=== PATIENT | female | born 1975 | race African-American/Black ===

== ENCOUNTER 2025-05-17 10:38 | Outpatient (CLI) | payer OTHER, SELFPAY ==
--- NOTE | 2025-05-17 11:40 | ECG_ITS ---
Test Date: 2025-05-17 11:57:23 Measurements Intervals [place] Rate: 89 P: 65 MI: 185 QRS: 46 QRSD: 72 T: 31 QT: 348 QTc: 425 Interpretive Statements SINUS RHYTHM NONSPECIFIC T-WAVE ABNORMALITY- ANT/INF LEADS BASELINE ARTIFACT- I, II, III, AVR, AVL, AVF BORDERLINE ECG No previous ECG available for comparison Electronically Signed On 05-17-2025 12:07:18 [employer]PER[employer] by Napoleon Sims D.O.
[2025-05-17 12:13] LABS: Hematocrit 31.9 % (37.0-47.0); Hemoglobin 9.5 g/dL (12.0-15.0); Immature Granulocyte Percent A 0.2 % (0-0.5); Lymphocytes Absolute Auto 1.97 K/mm3 (0.9-3.2); Mean Corpuscular HGB Conc 29.8 g/dl (32-36); Mean Corpuscular Hemoglobin 22.2 pg (26-34); Mean Corpuscular Volume 74.7 fl (80-100); Nucleated Red Blood Cells Absolute Auto 0.000 K/mm3 (0.0-0.012); Nucleated Red Blood Cells Perc 0.0 % (0.0-0.2); Platelet Count Result 436 k/mm3 (150-375); Red Blood Count 4.27 M/mm3 (4.2-5.4); White Blood Count 8.4 K/mm3 (4.5-10.0)
[2025-05-17 12:24] LABS: Hemoglobin A1C 5.3 % (<5.7)
--- OUTSIDE RECORDS SUMMARY | 2025-05-17 12:33 | XMS_ITS | Clinical Summary ---
Author Organization [facility] Address [address] [place] [address] Care Team Providers Care Application Designer Name Role Phone Kari Sarmiento MD Primary Care Provider [phone] Allergies No known active allergies Medications losartan (COZAAR) 25 MG tabletIndications: Hypertension, essential Take 1 tablet (25 mg total) by mouth daily. 30 tablet 5 5 Active DULoxetine (CYMBALTA) 60 MG capsuleIndications :Mixed anxiety and depressive disorder Take 1 capsule (60 mg total) by mouth daily. 30 capsule 5 5 Active naproxen (NAPROSYN) 500 MG tabletIndications: Left hip pain TAKE 1 TABLET(500 MG) BY MOUTH TWICE DAILY WITH MEALS 60 tablet 5 Active HYDROcodone-acetam inophen (NORCO) 5-325 MG tabletIndications: Acute Pain < 3 Day Supply Take 1 tablet by mouth every 6 (six) hours as needed. Indications : Acute Pain < 3 Day Supply 5 tablet 5 Active cyclobenzaprine (FLEXERIL) 10 MG tabletIndications: Primary osteoarthritis of left hip Take 1 tablet (10 mg total) by mouth 2 (two) times daily as needed for Muscle Spasms. 30 tablet 5 Active cyclobenzaprine (FLEXERIL) 10 MG tabletIndications: Primary osteoarthritis of left hip Take 1 tablet (10 mg total) by mouth 2 (two) times daily as needed for Muscle Spasms. 30 tablet 5 05/07/20 25 Discontin ued(Reord er) Active Problems Problem Noted Date Diagnosed Date Pre-op evaluation 05/07/2025 Overview (05/07/2025): - This appointment is an evaluation of risk and not a clearance for surgery. - There is no evidence of active cardiac conditions including unstable angina, history of severe valvular disease, evidence of decompensated heart failure or significant arrhythmias to indicate need for further cardiac evaluation/treatment at this time. - Based on the patient s history, current medications, and the nature of planned surgery, the following labs and tests are ordered: - none - Based on the most recent clinical practice guidelines for perioperative evaluation, the following are recommended regarding the patient s medications: - Continue taking statin. - Continue taking Beta Blockers if already well tolerated. - Continue taking ACEi if well tolerated, but hold on day of surgery. - Defer to cardiology for guidance on the use of antiplatelet agents for CAD and anti-coagulants for dysrhythmia. - Smoking cessation is recommended 30 days prior to operation for maximal benefit. - The patient is medically optimized for surgery. Leg length discrepancy 02/21/2025 Overview (02/21/2025): - reports left leg is 1/2 inch shorter than the right - was following with [facility] Dr. Fernandez Mixed anxiety and depressive disorder 02/12/2025 Overview (03/16/2025): - PHQ9 = 03/16/2025 9:36 AM PHQ-9 Score Patient Health Questionnaire-9 Score 7 , GAD7 = 03/16/2025 9:37 AM [facility] AMB GAD7 SCORE Total MARIA DOLORES Score 14 - discussed results of PHQ-9/MARIA DOLORES-7 with pt, pt denies SI/HI - pt does not have a history of psychiatric hospitalization - current medications: cymbalta 30 - previous medications: effexor - pt feels current dose of medication(s) is partially effective - pt is not currently seeing a counselor/therapist - encouraged pt to start seeing counseling/therapy - RTC 1 month(s) - increase to cymbalta 60 Primary osteoarthritis of left hip 11/18/2024 Overview (05/07/2025): - previously establish with Dr. Fernandez with [facility], was scheduled to have a hip replacement 02/15 but pt's insurance changed and was no longer in network with [facility] - pt scheduled for L THR with [facility] on 05/31/25 - will give flexeril for spasms today Primary osteoarthritis of right knee 07/24/2021 Overview (02/12/2025): Added automatically from request for surgery [id number] Hypertension, essential 10/27/2020 Overview (03/16/2025): - BP goal: less than 140/90 - BP controlled: Yes - Labs: Due - Pt does not use tobacco products, encouraged cessation if using tobacco products - Counseled regarding importance of lifestyle modification: healthy diet & regular exercise 30mins 3-5x weekly - RTC 3 month(s) - continue losartan 25 Resolved Problems Problem Noted Date Diagnosed Date Resolved Date Status post total right knee replacement 09/21/2021 02/12/2025 S/P endometrial ablation 07/27/2020 Encounters Date Type Department Care Team Description 05/07/2025 10:20 AM INSTRUCTIONAL SUPPORT ASSISTANT Office Visit [address] [address] Kari Sarmiento MD Surgical Clearance (Pt will behaving surgery on left hip, 05/31/[address] Kwok in [place], [place]) 05/07/2025 Travel 04/27/2025 Scan [facility] INFO SRVCS Scanned, [facility] 04/07/[address] [address] Kari Sarmiento MD Pain Hip/ Limb 03/27/2025 8:12 AM CDT - 03/27/2025 8:45 AM CDT Emergency [facility] [place] [address] Kieran Starr PA-C Hip Pain (Left ) Discharge Disposition: Home or Self Care (Routine Discharge) 03/27/2025 Travel 03/16/2025 9:20 AM CDT Office Visit [address] [address] Kari Sarmiento MD Hypertension (Pt arrives today for one month f/u. ); Depression 03/16/2025 9:10 AM CDT Laboratory Only [facility] [id number] [place] [address] Kari Sarmiento MD 03/16/2025 Scan [facility] INFO SRVCS Scanned, [facility] 03/16/2025 Travel 02/26/2025 8:35 AM CDT - 02/26/2025 9:47 AM CDT Emergency [facility] [place] [address] Luis Santillan MD Shanle, Kaitlyn E PA Hip Pain Discharge Disposition: Home or Self Care (Routine Discharge) 02/26/2025 Travel 02/25/2025 Telephone [facility] [address] [place] [address] Jose Klein MD Appointment Request from Last 3 Months Immunizations Immunization Administration Dates Next Due Dtp (Generic) 04/07/1982, 8,1974,1974,1974 Influenza Adult (Generic) 02/14/2023,01/29/2022 MMR (MMRII) 11/01/1976 Polio Opv (Generic) 04/07/1982, 8,1974,1974,1974 Tdap (Generic) 08/29/2023 Social History Tobacco Use Types Packs/Day Years Used Date Smoking Tobacco: Never Smokeless Tobacco: Never Tobacco Cessation:Counseling Given: No Alcohol Use Standard Drinks/Week Comments Never 0 (1 standard drink = 0.6 oz pur e alcohol) PHQ-2 Answer Date Recorded Patient Health Questionnaire-2 Score 0 05/07/2025 Comments No Sex and Gender Information Value Date Recorded Sex Assigned at Female 01/08/2025 8:05 AM CDT Legal Sex Female 8:03 AM CDT Gender Identity Female 05/07/2025 10:20 AM INSTRUCTIONAL SUPPORT ASSISTANT Sexual Orientation Not on file Last Filed Vital Signs Vital Sign Reading Time Taken Comments Blood Pressure 130/85 05/07/2025 10:20 AM INSTRUCTIONAL SUPPORT ASSISTANT Pulse 81 05/07/2025 10:20 AM INSTRUCTIONAL SUPPORT ASSISTANT Temperature 37 C (98.6 F) 05/07/2025 10:20 AM INSTRUCTIONAL SUPPORT ASSISTANT Respiratory Rate 16 05/07/2025 10:20 AM INSTRUCTIONAL SUPPORT ASSISTANT Oxygen Saturation 99% 05/07/2025 10:20 AM INSTRUCTIONAL SUPPORT ASSISTANT Inhaled Oxygen Concentration - - Weight 106.6 kg (235 lb) 05/07/2025 10:20 AM INSTRUCTIONAL SUPPORT ASSISTANT Height 175.3 cm (5' 9) 05/07/2025 10:20 AM INSTRUCTIONAL SUPPORT ASSISTANT Body Mass Index 34.7 05/07/2025 10:20 AM INSTRUCTIONAL SUPPORT ASSISTANT Plan of Treatment Health Maintenance Due Date Last Done Comments Colorectal Cancer Screening Colonoscopy (10 Years) 1974 Annual Physical 1977 Hepatitis C 1992 Hepatitis B Vaccines (1 of 3 - 19+ 3-dose series) 1993 Pneumococcal Vaccine: 50+ Years (1 of 1 - PCV) 2024 Zoster Vaccines (1 of 2) 2024 Mammogram Screening 09/27/2024 09/27/2022, COVID-19 Vaccine (2024- season) 2025 03/29/2021, 06/23/2020, 06/02/2020 Influenza Adult (#1) 2025 02/14/2023, 01/30/20 22 DTaP, Tdap and Td Vaccines (7 - Td or Tdap) 08/28/2033 08/29/2023, 04/07/1982, 08/06/1977, Additional history exists PHQ-2 (Physician [place]) Completed 05/07/2025 Hepatitis A Vaccines Aged Out No long er eligible based on patient's age to complete this topic Meningococcal B Vaccine Aged Out No l onger eligible based on patient's age to complete this topic Meningococcal Vaccine Aged Out No ann dayron eligible based on patient's age to complete this topic RSV Immunizations Under 20 Months Aged Out No longer eligible based on patient's age to complete this topic Procedures Procedure Name Priority Date/Time Associated Diagnosis Comments HEMOGLOBIN, GLYCOSYLATED Routine 03/16/2025 9:24 AM CDT Hypertension, essential BASIC METABOLIC PANEL Routine 03/16/2025 9:24 AM CDT Hypertension, essential LIPID PANEL Routine 03/16/2025 9:24 AM CDT Hypertension, essential COLLECTION VENOUS BLOOD VENIPUNCTURE Routine 03/16/2025 Hypertension, essential from Last 3 Months Results * (ABNORMAL) HEMOGLOBIN, GLYCOSYLATED (03/16/2025 9:24 AM CDT) HGB A1C 6.1 4.5 - 6.2 % 03/16/2025 2:50 PM CDT [facility] ESTIMATED AVG GLUCOSE 128(H) 74 - 106 MG/DL 03/16/2025 2:50 PM CDT [facility] 03/16/2025 9:24 AM CDT Kari Sarmiento MD LABORATORY Final Result [facility] [address] [place] [address], * (ABNORMAL) BASIC METABOLIC PANEL (03/16/2025 9:24 AM CDT) SODIUM S/P/B 141 136 - 145 MMOL/L 03/16/2025 2:29 PM CDT [facility] POTASSIUM S/P/B 4.3 3.5 - 5.1 MMOL/L 03/16/2025 2:29 PM CDT [facility] CHLORIDE S/P/B 104 98 - 107 MMOL/L 03/16/2025 2:29 PM CDT [facility] CO2 31.7 21 - 32 MMOL/L 03/16/2025 2:29 PM CDT [facility] GLUCOSE 93 70 - 99 MG/DL 03/16/2025 2:29 PM CDT [facility] BUN 11 7 - 18 MG/DL 03/16/2025 2:29 PM CDT [facility] CREATININE S/P/B 1.14(H) 0.55 - 1.02 MG/DL 03/16/2025 2:29 PM T [facility] CALCIUM S/P/B 9.5 8.4 - 10.5 MG/DL 03/16/2025 2:29 PM CDT [facility] ANION GAP 5.3 5 - 15 MMOL/L 03/16/2025 2:29 PM CDT [facility] Comment:REFERENCE RANGE NOT ESTABLISHED OSMOLALITY (CALC) 291 MOSM/KG 025 2:29 PM CDT [facility] Comment:REFERENCE RANGE NOT ESTABLISHED GFR ESTIMATE 59(L) >90 ML/MIN/1. 73 M2 03/16/2025 2:29 PM CDT [facility] GFR NOTES GFR REFERENCE S: 03/16/2025 2:29 PM CDT [facility] Comment: THE ESTIMATED GFR IS CALCULATED USING THE 2020 CKD-EPI EQUATION. THE FOLLOWING CATEGORIES FOR GRADING RENAL FUNCTION ARE RECOMMENDED BY THE INTERNATIONAL SOCIETY OF NEPHROLOGY (KDIGO 2012 CLINICAL PRACTICE GUIDELINE). G1,NORMAL OR HIGH: >89 ml/min/1.73 m2 G2,MILDLY DECREASED: 60-89 ml/min/1.73 m2 G3A,MILDLY TO MODERATELY DECREASED: 45-59 ml/min/1.73 m2 G3B,MODERATELY TO SEVERELY DECREASED: 30-44 ml/min/1.73 m2 G4,SEVERELY DECREASED: 15-29 ml/min/1.73 m2 G5,KIDNEY FAILURE: <15 ml/min/1.73 m2 03/16/2025 9:24 AM CDT us Kari Sarmiento MD LABORATORY Final Result [facility] [address] [place] [address], * (ABNORMAL) LIPID PANEL (03/16/2025 9:24 AM CDT) [facility] Signature CHOLESTEROL 195 <200 MG/DL 03/16/2025 2:29 PM CDT [facility] TRIGLYCERIDES 73 <150 MG/DL 03/16/2025 2:29 PM CDT [facility] HDL 62 >40 MG/DL 03/16/2025 2:29 PM CDT [facility] LDL-C 118(H) <100 MG/DL 03/16/2025 2:29 PM CDT [facility] VLDL CALCULATION 15 5 - 28 MG/DL 03/16/2025 2:29 PM CDT [facility] CHOL/HDL RATIO 3.1 0.0 - 4.0 03/16/2025 2:29 PM CDT [facility] LDL/HDL 1.9 0.41 - 2.13 03/16/2025 2:29 PM CDT [facility] NON HDL CHOLESTEROL 133 <140 MG/DL 03/16/2025 2:29 PM CDT [facility] 03/16/2025 9:24 AM CDT Kari Sarmiento MD LABORATORY Final Result [facility] [address] [place] [address], * COLLECTION VENOUS BLOOD VENIPUNCTURE (03/16/2025) Kari Sarmiento MD PROCEDURES Final Result from Last 3 Months Insurance [employer] Care Teams Application Designer Relationship Specialty Start Date End Date Kari Sarmiento MD [address] [place] [address] PCP - General FAMILY PRACTICE 02/05/25
--- OUTSIDE RECORDS SUMMARY | 2025-05-17 12:33 | XMS_ITS | Clinical Summary ---
Author Organization [facility] Address [address] [place] [address] Care Team Providers Care Utility Bill Complaints Investigator Name Role Phone Unavailable Primary Care Provider Unavailabl e Immunizations Immunization Administration Dates Next Due Covid-19, Mrna, Lnp-s, Pf, 30 Mcg/0.3 Ml Dose (P fizer) 03/29/2021 Social History Tobacco Use Types Packs/Day Years Used Date Smoking Tobacco: Never Assessed Comments Unknown Sex and Gender Information Value Date Recorded Sex Assigned at Not on file Legal Sex Female 10:03 AM CDT Gender Identity Not on file Sexual Orientation Not on file Plan of Treatment Health Maintenance Due Date Last Done Comments Hepatitis C Virus (HCV) Screening 1974 TdaP Immunization 1974 Hepatitis B Immunization (1 of 3 - 19+ 3-dose series) 1993 Pap Smear 1995 Cervical Cancer Screening (CCS) 2004 HPV/Cotest 2004 Cologuard 2019 Colonoscopy 2019 Colorectal Cancer Screening 2019 Immunochemical Fecal Occult Blood 2019 Pneumococcal Immunization (50+ years) (1 of 1 - PCV) 2024 Zoster Immunization (1 of 2) 2024 Influenza Immunization (#1) 2025 SARS-COV-2 Immunization ( season) 2025 03/29/2021, 06/23/2020, 06/02/2020 Respiratory Syncytial Virus (RSV) Immunization (Adult) (1 - 1-dose 75+ series) 2049 DTaP/Tdap/Td Immunization Discontinued 1981, 08/06/1977, 1974, Additional history exists Human Papillomavirus (HPV) Immunization (No Doses Required) Completed Meningococcal Immunization (ACWY) Aged Out No longer eligible based on patient's age to complete this topic Rotavirus Immunization Aged Out No lo nger eligible based on patient's age to complete this topic
--- OUTSIDE RECORDS SUMMARY | 2025-05-17 12:33 | XMS_ITS | Clinical Summary ---
Author Organization [facility] Address [address] [place] [address] Care Team Providers Care Diaphragm Builder Name Role Phone Osbaldo Fernandez MD Unavailable [phone] Shaista Larios MD Unavailable [phone] Kristina Sesay NP Unavailable Alyssa Skinner MD Primary Care Provider [phone] Allergies No known active allergies Medications naloxone (NARCAN) 4 mg/actuation spray,non-aerosol Administer 1 spray into affected nostril(s) as needed for opioid reversal Call 911. Administer a single spray in one nostril. Repeat every 3 minutes as needed if no or minimal response. 2 each 11/15/19 23 Active venlafaxine XR (EFFEXOR-XR) 150 mg 24 hr capsule Take 1 capsule (150 mg total) by mouth daily 90 capsule 3 08/19/19 24 Active estradioL (VIVELLE-DOT) 0.1 mg/[address] 1 PATCH ON THE SKIN 2 TIMES A WEEK. 8 patch 3 09/02/19 24 Active ondansetron (ZOFRAN) 4 mg tablet Take 1 tablet (4 mg total) by mouth every 6 (six) hours 12 tablet 10/08/19 24 Active dicyclomine (BENTYL) 10 mg capsule Take 1 capsule (10 mg total) by mouth 4 (four) times a day as needed (abd cramps) 60 capsule 10/16/19 24 Active estradioL (ESTRACE) 0.01 % (0.1 mg/gram) vaginal cream Apply nightly to vagina for 1 week, then Saturday/ y/ Saturday 42.5 g 2 04/02/20 24 Active losartan (COZAAR) 50 mg tablet Take 1 tablet (50 mg total) by mouth daily 90 tablet 06/08/19 25 Active lidocaine (LIDODERM) 5 % Place 1 patch on the skin daily Remove & discard patch within 12 hours or as directed by . 30 patch 06/08/19 25 Active Additional Information Patient not taking.Reported on 11/18/2024 ondansetron ODT (ZOFRAN-ODT) 4 mg disintegrating tablet Take 1 tablet (4 mg total) by mouth every 8 (eight) hours as needed for nausea or vomiting 20 tablet 06/08/19 25 Active benzonatate (TESSALON) 100 mg capsuleIndications :Cough Take 1 capsule (100 mg total) by mouth every 8 (eight) hours 21 capsule 06/08/[address] (PROTONIX) 40 mg EC tablet TAKE 1 TABLET BY MOUTH TWICE A DAY 180 tablet 3 08/04/19 25 Active methocarbamoL (ROBAXIN) 500 mg tablet Take 1 tablet (500 mg total) by mouth 2 (two) times a day 20 tablet 10/20/19 25 Active traMADoL (ULTRAM) 50 mg tablet Take 1 tablet (50 mg total) by mouth every 6 (six) hours 10 tablet 10/20/19 25 Active methylPREDNISolone (Medrol, Garth,) 4 mg Dosepack follow package directions 1 packet 10/20/19 25 Active HYDROcodone-acetam inophen (NORCO) 5-325 mg per tabletIndications: Pain Take 1 tablet by mouth every 6 (six) hours as needed for pain 20 tablet 11/02/19 25 Active naproxen (NAPROSYN) 500 mg tabletIndications: Anti-inflammatory, Pain Take 1 tablet (500 mg total) by mouth 2 (two) times a day with meals 60 tablet 1 11/19/19 25 Active Active Problems Problem Noted Date Diagnosed Date Primary osteoarthritis of left hip 11/18/2024 Assessment & Plan (11/18/2024 3:49 PM CDT): Rafael unfortunately has severe osteoarthritis of the left hip which is affecting her mobility and ability to perform her ADLs. She has had multiple ER trips recently due to her hip pain. I discussed treatment options today with her, including surgical intervention. Unfortunately, I do feel she needs surgical intervention on the hip in order to improve her pain and quality of life. We will refer her to Dr. Fernandez for evaluation for possible left total hip arthroplasty. In the meantime, we will try naproxen for pain control. She has tried meloxicam in the past without significant relief. She understands the risks and benefits of this medication. She will follow up with Dr. Fernandez as scheduled. She expressed understanding and agreement with the plan. Recurrent major depression 12/22/2021 Assessment & Plan (08/29/2023 2:42 PM CDT): Ongoing. Recently started Effexor. Status post total right knee replacement 022 UTI (urinary tract infection) 08/02/2021 Assessment & Plan (08/02/2021 10:54 AM GORE CUTTER): With hematuria- needs to see uro caitlin, wasn't called after referral placed 01/[address] a/p caitlin, ordered and getting scheduled Cont bactrim for now Primary osteoarthritis of right knee 07/24/2021 Overview (07/24/2021): Added automatically from request for surgery [id number] Assessment & Plan (02/14/2023 9:25 AM CDT): Seeing ortho Continue medication as prescribed Chronic pain of both knees 06/09/2021 Assessment & Plan (02/14/2023 9:25 AM CDT): Continue current pain medication Assessment & Plan (06/09/2021 10:14 AM GORE CUTTER): Recommend proceeding with tkr if Dr. Fernandez agrees- she plans to make appt Preventative health care 06/09/2021 Assessment & Plan (08/29/2023 2:38 PM CDT): Wear sunscreen with SPF over 50 while outdoors. Wear sun protective head wear and clothing if planning to stay outdoors exposed to the direct sunlight for extended hours. Wear seatbelts while in a vehicle. Do not TEXT and DRIVE Do not DRINK and DRIVE. Drink responsibly Follow a heart healthy diet and lifestyle. Consume 5-7 servings of fruits and vegetables a day.. Such as the Mediterranean Diet. Maintain/attain normal body weight. Exercise regularly, minimum 20 mins 3 days a week to reduce cardiovascular healthy. Maintain good sleep schedule and sleep habits I recommend that all patients follow a diet that is high in fruits and vegetables and low in processed foods such as sugar and foods that are made with white flour. I recommend using beneficial fats such as olive oil, nuts, seeds and berries and avoiding saturated animal fats. Please stay physically active to the extent that you are physically able to. Test results: if you have not received communication about test results within 7 days of the test being performed, please contact the office. I strongly encourage myChart sign ups. It can facilitate communication flow. Please contact the office for instructions on signing up. Assessment & Plan (06/09/2021 10:32 AM GORE CUTTER): Needs tdap, flu shot S/p total hyst Needs mammo- ordered, hasnt done Needs cscope- ordered, hasnt done labwork due in November, f/u in November after labs Class 2 drug-induced obesity with serious comorbidity and body mass index (BMI) of 35.0 to 35.9 in adult 06/09/2021 Assessment & Plan (08/29/2023 2:43 PM CDT): Work on attempts to lose weight about 1 lb a week. Join a weight loss program if necessary. Try to reach for BMI under 30. Exercise regularly, Limit carbs and sugars. Control portion intake. Consume 6-8 8oz glasses of water daily. BMI Follow-up includes: nutrition counseling, exercise counseling and education provided. Assessment & Plan (02/14/2023 9:39 AM CDT): With HTN and metabolic syndrome Continue rybelsus Assessment & Plan (05/15/2022 9:29 AM GORE CUTTER): Will try to get cesar approved for weight loss Assessment & Plan (02/14/2022 9:56 AM CDT): Discussed options- glp1-ra, xenical Advise xenical as first line as unlkely glp1-ra is covered- if fails xenical, could consider gp1-ra Advise diet and 150 minutes of exercise weekly Assessment & Plan (06/09/2021 10:32 AM GORE CUTTER): Advise tkr so she can get back to an active lifestyle Weight gain 10/27/2020 Assessment & Plan (08/29/2023 2:43 PM CDT): Start phentermine for weight loss. I have advised this may make anxiety symptoms worse. If that occurs she is to stop taking medication. Follow up in 3 months for weight check. Assessment & Plan (06/09/2021 10:29 AM GORE CUTTER): Dt lack of mobility dt severe oa Discuss tkr with Dr. Fernandez! Assessment & Plan (10/27/2020 1:00 PM CDT): Very thorough work up by Dr. Larios already performed, normal BNP, echo so reassured it is not cardiac related lfts and gfr normal as well tfts normal Suspect currently stress related and hoping withsome normalization in her health, her weight will return to 06/2020 weight! Hypertension, essential 10/27/2020 Assessment & Plan (08/29/2023 2:40 PM CDT): Follow low sodium DASH Diet. Exercise regularly for cardiovascular health and weight loss. Achieve or maintain normal BMI/Weight. Take medications as prescribed. Report if having problems with the medication or if develops Chest pains. Monitor BP occasionally and record. Report if BP consistently over 160/90 or under 90/60 and dizzy and low heart rate. Continue Rx medication. BP is controlled and stable. Assessment & Plan (02/14/2023 9:25 AM CDT): Chronic stable Well controlled Continue current prescribed medications at current dose Assessment & Plan (02/14/2022 9:55 AM CDT): Not controlled on norvasc Dc norvasc, start losartan- needs bmp in 1 week- pt understands Assessment & Plan (12/15/2021 10:59 AM CDT): On norvasc and hctz, high in office, she needs to send me numbers from home- states she will Assessment & Plan (10/27/2020 1:01 PM CDT): Has been on norvasc in the past, not on now She is to send me 2 numbers by calling MA's in next week S/P endometrial ablation 07/27/2020 Recurrent pain of right knee Assessment & Plan (02/16/2021 6:41 PM CDT): xray 1. Tricompartmental degenerative changes of the right knee without definite evidence of acute fracture or dislocation. 2. Small suprapatellar joint effusion. Saw [place] Needs surgery- encouraged pt to reconsider and ask work about fmla, we will gladly do paperwork rx for celebrex rx fx for muscle relasxer as back /hip is painful bc knee is so painful Transaminitis Assessment & Plan (06/09/2021 10:31 AM GORE CUTTER): No active issues, transient inc, check in November with labs Assessment & Plan (02/16/2021 6:43 PM CDT): Repeat now If high still or worsening, needs hepatitis work up and us Suspecting dt severe infection/uti Vaginal yeast infection Assessment & Plan (02/16/2021 6:44 PM CDT): Diflucan rx Resolved Problems Problem Noted Date Diagnosed Date Resolved Date Nausea 12/15/2021 11/14/2022 Assessment & Plan (12/15/2021 11:01 AM CDT): Early am Suspect gerd- starting ppi Pyelonephritis 08/04/2021 11/14/2022 Abnormal uterine bleeding (AUB) 07/27/2020 02/14/2023 Assessment & Plan (10/27/2020 1:02 PM CDT): S/p hysterectomy Had postop abscess, hospital admit Stable now Diagnosed with BV by Dr. Ric teet and on flagyl Anemia 07/27/2020 02/14/2023 Overview (12/15/2021): Improved after AMELIE Now recurring Assessment & Plan (12/15/2021 11:01 AM CDT): Recheck, check iron, b12 Advise she get colonoscopy caitlin- she has scheduled with Dr. Velázquez. Discussed colon cancer can cause an anemia and is very treatable if caught early. Had gerhard hematuria- has been worked up with Dr. Rodriguez. Assessment & Plan (06/09/2021 10:29 AM GORE CUTTER): Resolved after amelie- advise stopping iron Check labs annually- due in October 2021 Assessment & Plan (10/27/2020 1:00 PM CDT): Recheck now s/p hysterectomy, may be able to come off iron Hypertension 11/14/2022 Assessment & Plan (08/02/2021 10:55 AM GORE CUTTER): Cont norvasc, Starting hctz Assessment & Plan (06/09/2021 10:29 AM GORE CUTTER): Cont amlodopine- she will send me 2 numbers over next week from home. Suspect some white coat Assessment & Plan (02/16/2021 6:40 PM CDT): Starting norvasc- avoiding any renally cleared meds as current uti v pyelo Acute cystitis with hematuria 11/14/2022 Overview (02/16/2021): CT 07/2020 IMPRESSION: 1. Decreased size of lenticular shaped fluid collection in the pelvis. 2. Mild thickening of the urinary bladder wall with mild perivesicular fat stranding. Recommend correlation with urinalysis. 3. Increased size of right adnexal cystic lesion, likely a hemorrhagic cyst. Assessment & Plan (06/09/2021 10:30 AM GORE CUTTER): Dip today normal- no hematuria Assessment & Plan (02/16/2021 6:42 PM CDT): Dc cipro W/ct findings from 07/2020- needs uro evaluation caitlin- referral placed Start bactrim ased on sensitivities Discussed if she develops fevers, low back pain, vomiting, dizziness/lightheadedness she is to let me know caitlin v return to er Immunizations Immunization Administration Dates Next Due DTP 04/07/1982, 8,1974,10/28,1974 Influenza, Quadrivalent, Amna l Culture-based MDCK, Preservative Free, Antibiotic Free, Intramuscular 01/29/2022 Influenza, Quadrivalent, Spl it, Preservative Free, Intramuscular 02/14/2023 Influenza, Unspecified 02/14/2023(Deferr ed: Patient Refused),03/27/2022(Deferred: Patient Refused),08/02/2021(Deferred: Patient Refused) MMR 11/01/1976 OPV 04/07/1982, 8,1974,10/28,1974 Pfizer SARS-CoV-2 Monovalent Vaccination (12+ Yrs) PURPLE 06/23/2020,06/02/2020 Tdap 08/29/2023 Surgical History Surgery Date Site/Laterality Comments HYSTEROSCOPY 07/02/2020 with endometrial ablation TUBAL LIGATION HYSTERECTOMY 08/11/2020 JOINT REPLACEMENT 09/21/2021 Right total knee FLUORO GUIDED INJECTION HIP RIGHT 04/11/2022 Right FL FLUORO GUIDED INJECTION H IP LEFT 04/11/2022 Left FL FLUORO GUIDED INJECTION H IP LEFT 08/29/2022 Left Medical History Medical History Date Comments Hypertension UTI (urinary tract infection) re cent hospitalized/treated for UTI/kidney infection x 7 days Anemia treated Irritable bowel syndrome Obesity Wears glasses Vaginal delivery Family History Medical History Relation Name Comments No Known Problems Father No Known Problems Mother Breast cancer Neg Hx Colon cancer Neg Hx Ovarian cancer Neg Hx Pancreatic cancer Neg Hx Prostate cancer Neg Hx Uterine cancer Neg Hx Relation Name Status Comments Father Mother Social History Tobacco Use Types Packs/Day Years Used Date Smoking Tobacco: Former Cigarettes 0.5 6 0 07/07/2012 - 07/07/2018 Smokeless Tobacco: Never Tobacco Cessation:Counseling Given: Not Answered Alcohol Use Standard Drinks/Week Comments Yes 0 (1 standard drink = 0.6 oz pur e alcohol) Social Connection and Isolation Panel Answer Date Recorded In a typical week, how many times do you talk on the phone with family, friends, or neighbors? More than three times a week 09/22/2021 How often do you get togethe r with friends or relatives? More than three times a week 09/22/2021 How often do you attend chur or anabaptist services? Never 09/22/2021 Do you belong to any clubs o r organizations such as anglican groups, unions, fraternal or athletic groups, or school groups? No 09/22/2021 How often do you attend meet ings of the clubs or organizations you belong to? Never 09/22/2021 Are you , , di vorced, , never , or living with a partner? Never 09/22/2021 AUDIT-C Answer Date Recorded Frequency of Alcohol Consumption Not on file 02/14/2023 Q2: How many drinks containi ng alcohol do you have on a typical day when you are drinking? Patient does not drink Frequency of Binge Drinking Not on file 01/26 Overall Financial Resource Strain (CARDIA) Answe r Date Recorded How hard is it for you to pa y for the very basics like food, housing, medical care, and heating? Not hard at all 09/22/2021 PHQ-2 Answer Date Recorded PHQ-2 Total Score (If total score is 3 or more points, staff should administer the PHQ-9) 4 08/29/2023 PRAPARE - Transportation Answer Date Re corded In the past 12 months, has l ack of transportation kept you from medical appointments or from getting medications? No 08/26 In the past 12 months, has l ack of transportation kept you from meetings, work, or from getting things needed for daily living? No 09/22/2021 PHQ-9 Answer Date Recorded PHQ-9 Total Score 11 08/29/2023 Personal Safety Answer Date Recorded Have you ever been in or are you currently in a harmful physical or emotional relationship or is someone making you feel afraid or unsafe? 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 Not on file Not on file Obstetrics History Para Term AB IAB SAB Ectopic Multiple Livin g Live Births 3 3 3 3 Date Outcome GA Total Labor Labor/2nd/3rd Weight Sex Type Anes PTL Brandi A1 A5 Name Clin Term Term Term Last Filed Vital Signs Vital Sign Reading Time Taken Comments Blood Pressure 135/75 11/02/2024 5:30 PM CDT Pulse 76 11/02/2024 5:30 PM CDT Temperature 36.6 C (97.8 F) 11/02/2024 11:22 AM CDT Respiratory Rate 15 11/02/2024 5:30 PM CDT Oxygen Saturation 100% 11/02/2024 5:30 PM CDT Inhaled Oxygen Concentration - - Weight 111.1 kg (245 lb) 12/01/2024 2:33 PM CDT Height 175.3 cm (5' 9) 12/01/2024 2:33 PM CDT Body Mass Index 36.18 12/01/2024 2:33 PM CDT Plan of Treatment Health Maintenance Due Date Last Done Comments Hepatitis C Screening 1974 Hepatitis B Screening 1992 Breast Cancer Screening-Mammogram 09/28/2023 09/27/2022, 08/29/2021 Zoster Vaccine (1 of 2) 2024 Depression Screening 08/28/2024 08/29/2023, 05/17/2023, 02/14/2023, Additional history exists Regular Well Visit/Exam 18-64 08/28/2024 08/29/2023, 08/08/2022, 07/26/2021, Additional history exists Colon Cancer Screening-Colonoscopy 01/03/2025 01/03/2022 Covid-19 Vaccine ( season) 2025 03/29/2021, 06/23/2020, 06/02/2020 Influenza Vaccine (#1) 2025 02/14/2023, 2021 DTaP/Tdap/Td Vaccine (7 - Td or Tdap) 08/28/2033 08/29/2023, 04/07/1982, 08/06/1977, Additional history exists Pneumococcal vaccine <65 Aged Out No longer eligible based on patient's age to complete this topic Medical Devices Implanted Type Area Pediatric Social Worker Device Identifier Shelf Expiration Date Model / Serial / Lot [employer] Simplex P Radiopaque Full Dose Cement Bone Sterile 6191-1-010 - [id number] Implanted:Qty: 1 on 09/21/2021 by Osbaldo Fernandez MD at [facility] Bone Cement Right: Knee [employer] 11/24/2023 6191-1-010 / / [id number] [employer]O rtho Legion 13mm Posterior Stabilized High Flexion Knee 5-6 Insert [id number] - [id number] Implanted:Qty: 1 on 09/21/2021 by Osbaldo Fernandez MD at [facility] Other - see comments Right: Knee [employer]/ Ortho [id number] 11/12/2030 [id number] / / [id number] [employer]/O rtho Jsesica Ii Base Right Total Knee 5 Baseplate Tibial Nonporous [id number] - [id number] Implanted:Qty: 1 on 09/21/2021 by Osbaldo Fernandez MD at [facility] Other - see comments Right: Knee [employer]/ Ortho [id number] 06/20/2030 [id number] / / [id number] [employer]/O rtho Jessica Ii Legion Spc Posterior Stabilize Knee Right 5 Component [id number] - [id number] Implanted:Qty: 1 on 09/21/2021 by Osbaldo Fernandez MD at [facility] Other - see comments Right: Knee [employer]/ Ortho [id number] 01/11/2029 [id number] / / [id number] [employer]O rtho Jessica Ii 13mm 29mm Biconvex Knee Component [facility]ellar [facility] [id number] - [id number] Implanted:Qty: 1 on 09/21/2021 by Osbaldo Fernandez MD at [facility] Patella Right: Knee [employer]/ Ortho [id number] 04/10/2031 [id number] / / [id number] Procedures Procedure Name Priority Date/Time Associated Diagnosis Comments SCREENING MAMMOGRAM BILATERAL W SILAS Schedule Routine, Read Routine (OP Routine) 09/27/2022 3:26 PM CDT Encounter for screening mammogram for malignant neoplasm of breast HM COLONOSCOPY Routine 01/03/2022 from Last 3 Months or Most Recently Relevant to Health Maintenance Results * Screening Mammogram Bilateral W Silas (09/27/2022 3:26 PM CDT) Anatomical Region Laterality Modality Breast Bilateral Mammography Impressions 09/27/2022 3:29 PM CDT BI-RADS ATLAS category (overall): 2 - Benign There is no mammographic evidence of malignancy. A 1 year screening mammogram is recommended. The patient has been or will be contacted. We recommend annual screening mammography for women at average risk of breast cancer beginning at age 40, based on guidelines of the [place] [employer] (ACR Practice Parameter for the Performance of Screening and Diagnostic Mammography) and [employer] [employer]. For women with and elevated risk of breast cancer, please refer to the ACR Practice Parameter for specific screening recommendations. The patient will be entered into a reminder system with a target due date of 1 year for her next screening exam. Narrative 09/27/2022 3:29 PM CDT Screening Mammogram Bilateral W Silas: 09/27/22 The study was acquired using full field digital technology and interpreted from soft copy. 2D digital mammographic views, as well as 3D digital tomosynthesis were performed in the CC and MLO projections. CLINICAL: Encounter for screening mammogram for malignant neoplasm of breast. No relevant medical history has been documented for this patient. History of breast cancer in Neg Hx. Baseline screening mammography. No prior mammography is available for comparison. BREAST TISSUE: The breasts have scattered areas of fibroglandular density. FINDINGS: There are multiple similar-appearing, round and oval masses with partially circumscribed, partially obscured margins in both breasts. These are considered to be benign based on their multiplicity, bilaterality, and morphology. There is no new suspicious finding in either breast on mammogram. Shaista Larios MD IMG MAMMO PROCEDURES Final Result * COLONOSCOPY (01/03/2022) Scribed Colonoscopy Comment:3yrs Historical Provider HEALTH MAINTENANCE Final Result from Last 3 Months or Most Recently Relevant to Health Maintenance Additional Health Concerns Infection Onset Date Last Indicated MDR gram neg/ESBL Comment:Contact Precautions (gown and gloves) LYNN Chapin 09/22/21 08/15/2020 07/29/2021 Insurance [facility] Advance Directives For more information, please contact: [phone] * Full Code (Latest Code Status on File) Date Activated Date Inactivated Comments 09/21/2021 11:56 AM 09/22/2021 4:54 PM * Full Code Date Activated Date Inactivated Comments 08/04/2021 4:33 PM 08/10/2021 8:51 PM Care Teams Diaphragm Builder Relationship Specialty Start Date End Date Alyssa Skinner MD [address] [place] [address] PCP - General Family Medicine 12/23/24 Osbaldo Fernandez MD [address] [place] [id number] Consulting Physician Orthopedic Surgery 09/22/21 Shaista Larios MD [address] [place] [id number] Consulting Physician Obstetrics and Gynecology 05/17/23 Kristina Sesay NP [address] [place] [id number] Nurse Practitioner Gastroenterology 05/17/23
[2025-05-17 12:34] LABS: Albumin Level 4.0 g/dL (3.5-5.1); Estimated Glomerular Filt Rate 58; Glucose 102 mg/dL (65-110)
[2025-05-17 12:43] LABS: Hypochromasia 2+; Microcytosis 1+ (NORMAL); Schistocytes None Seen
[2025-05-17 13:49] LABS: MRSA (PCR) NOT DETECTED (NOT DETECTE)
== END 2025-05-17 10:39 | disposition home or self-care (01) ==
LOC: ANHSURGERY 10:47
PROVIDERS: Visit Provider Orthopaedic Surgery
DX: M16.12 Unilateral primary osteoarthritis, left hip (principal); Z01.818 Encounter for other preprocedural examination; R94.31 Abnormal electrocardiogram [ECG] [EKG]
CPT/HCPCS: 80307; 82040; 82565; 82947; 83036; 85025; 87641; 93005